=== PATIENT | male | born 1980 | race Caucasian/White ===

== ENCOUNTER 2020-10-14 14:42 | Emergency (ER) | payer BC ==
[~2020-10-14] VITALS: Ht 177.8 cm; Wt 93.0 kg
[2020-10-14] MEDS ORDERED: PREDNISONE 10 M10 M1 PO (16:07)
[2020-10-14] MEDS ORDERED: DIPHENHIST50 MG PO (16:07)
[2020-10-14] MEDS ORDERED: EPIPEN0.3 MG/0.1 IM (16:07)
[2020-10-14 16:24] VITALS: BP 127/86
== END 2020-10-14 16:26 | disposition home or self-care (01) ==
LOC: M.ERS 14:42
DX: T63.441A Toxic effect of venom of bees, accidental (unintentional), initial encounter (principal); Y92.89 Other specified places as the place of occurrence of the external cause